=== PATIENT | male | born 1960 | race Caucasian/White ===

== ENCOUNTER → 2024-07-04 10:07 | Outpatient (REF) | payer OTHER, SELFPAY | LOC: HWRAD 10:07 | PROVIDERS: ATTENDING PHYSICIAN Family Medicine | DX: Z87.891 Personal history of nicotine dependence (principal) | CPT/HCPCS: 71271 ==

== ENCOUNTER → 2024-08-10 10:21 | Outpatient (REF) | payer OTHER, SELFPAY | LOC: RAD 10:21 | PROVIDERS: ATTENDING PHYSICIAN Family Medicine | DX: I48.0 Paroxysmal atrial fibrillation (principal) | CPT/HCPCS: 76770 ==

== ENCOUNTER → 2024-08-31 06:20 | Day surgery (SDC) | payer OTHER, SELFPAY | LOC: GI 06:20 | PROVIDERS: ATTENDING PHYSICIAN Internal Medicine Gastroenterology; FAMILY PHYSICIAN Family Medicine | DX: Z12.11 Encounter for screening for malignant neoplasm of colon (principal); D12.3 Benign neoplasm of transverse colon; K63.5 Polyp of colon; K57.30 Diverticulosis of large intestine without perforation or abscess without bleeding; K64.0 First degree hemorrhoids; R06.83 Snoring; Z79.01 Long term (current) use of anticoagulants | CPT/HCPCS: 45385; 45380; 45381; 88305 ==

== ENCOUNTER 2025-05-30 17:16 | Emergency (ER) | payer MEDICARE, SELFPAY ==
[2025-05-30] VITALS (22 sets, daily range): BP systolic 117–145; BP diastolic 81–107; BMI 36.9
[2025-05-30 17:43] LABS: Hematocrit 46.8 % (39.0-52.0); Hemoglobin 16.7 g/dL (13.0-18.0); Mean Corp Hgb Conc. 35.7 g/dL (33.0-37.0); Mean Corpuscular Volume 81.8 fL (80.0-94.0); Nucleated Red Blood Cells % 0 % (-); Platelet Count 249 10^3/uL (130-400); Red Cell Dist. Width 13.3 % (11.5-14.5)
[2025-05-30] MEDS: CARDIZEM 20 MG IV (17:43)
[2025-05-30 17:59] LABS: Blood Urea Nitrogen 19 mg/dl (9-20); Calcium 9.2 mg/dl (8.4-10.2); Carbon Dioxide 22 mmol/L (22-30); Chloride 107 mmol/L (98-107); Estimated Creatinine Clearance 105 ml/min; Glucose 94 mg/dl (70-99); Sodium 136 mmol/L (135-145); eGFR > 60.00
--- NOTE | 2025-05-30 19:13 | ED.GENMED ---
History of Present Illness
General
Chief Complaint: Heart Rate Problem
Time Seen by Provider: 05/30/25 17:23
History of Present Illness
History of Present Illness:
65-year-old male with prior history of A-fib on Eliquis status post ablation 2 and half years ago presenting for palpitations. Patient reports symptoms for the past 4 days. Notes that the palpitations are more prominent when he stands up. He has
not had any issues with his A-fib status post his ablation. He is not on any rate controlling medications. He also has history of hypertension and hyperlipidemia. Denies any associated chest pain or difficulty breathing. Denies fever or recent
illness. Denies abdominal pain or GI symptoms. Patient follows with a broadcast checker through [facility], lives in this area, however has been following with his broadcast checker for some time. Denies additional acute medical complaints
Phy Exam
Physical Exam
Physical Exam:
General: Well-appearing, no clinical signs of dehydration, nontoxic and in no acute distress
HEENT: protecting airway
Neck: appears supple
CV: Tachycardic, irregularly irregular rhythm, no evidence of cyanosis
Resp: No accessory muscle use, no increased work of breathing, lungs clear to auscultation bilaterally
Abd: No distention
Extremities: No deformities, no swelling
Neuro: alert, no focal neurologic deficit
: deferred
Rectal: deferred
Psych: Normal affect
Skin: Intact
Course
Orders/Labs/Results
Orders:
Orders
05/30/25 17:21
Electrocardiogram (*1) Urgent
Reason for Study: Palpitations
EKG- Treatment ONCE
05/30/25 17:32
Diltiazem HCl [Cardizem] 20 mg IV NOW STA
05/30/25 17:35
Basic Metabolic Panel Urgent
Complete Blood Count/With Diff Urgent
05/30/25 19:09
Propofol [Diprivan] 20 ml .ROUTE .STK-MED
05/30/25 19:22
Propofol [Diprivan] 100 mg IV NOW STA
05/30/25 19:30
ECG [Electrocardiogram (*1)] Urgent
Reason for Study: Palpitations
Cardiology Consult: Unknown
EKG- Treatment ONCE
Abnormal Lab Results
05/30/25
17:35
MPV 10.6 H fL
(7.4-10.4)
Absolute Lymphs (auto) 3.9 H 10^3/uL
(1.2-3.4)
Absolute Monos (auto) 0.8 H 10^3/uL
(0.1-0.6)
05/30/25 17:35
05/30/25 17:35
Vital Signs
Initial and Last Documented VS:
Initial Vital Signs
Pulse Resp
171 19
05/30/25 17:21 05/30/25 17:21
Last Documented Vital Signs
Temp Pulse Resp BP Pulse Ox
98.1 F 91 20 127/95 98
05/30/25 19:51 05/30/25 20:30 05/30/25 20:48 05/30/25 20:30 05/30/25 20:48
Procedures
Cardioversion
Indication:: Afib
Performed by:: Meera Plascencia DO
Energy Used: 200 joules
Number of attempts: 1
Complications: none
ASA Risk Score: Class II
Any reaction or bad outcome to prior sedation/anesthesia?: No history of a reaction
Sedation level to be attained: moderate
Chart and allergies reviewed: Yes
Patient reassessed prior to sedation: Yes
Time out completed at (validating right patient & procedure): 19:22
History of difficult intubation: No
Airway free of obstruction: Yes
Patient has a gag reflex: Yes
Patient is able to open mouth: Yes
Patient has no dentures: Yes
Patient has no loose teeth: Yes
Medication administered by Provider during Moderate Sedation: IV Propofol (mg)
Total dose administered: 100
Time drug administered: 19:26
Start Time: 19:26
Stop Time: 19:41
MDM/Problems Addressed
MDM/Problems Addressed:
65-year-old male with history of A-fib status post ablation presenting for palpitations. Vital signs on arrival significant for tachycardia.
On exam, patient resting comfortably, no acute distress or discomfort. Patient by monitor and by EKG is with RVR. Suspected etiology of patient's symptoms. No additional hemodynamic instability. Patient notes that he has been cardioverted in the
past with success. He reports compliance with his Eliquis, denies any missed doses. Will try diltiazem for rate control and reassess.
19:10 - Patient still tachycardic, discussed options of continued rate controlling medications versus cardioversion. Patient would prefer to be cardioverted. Will proceed.
19:30 -successful cardioversion. Once patient is more awake and alert, plan for discharge home with outpatient cardiology follow-up
*Pulse Oximetry
SaO2: 98
Oxygen Mode of Delivery: Room air
Patient hypoxic: no
*EKG
Interpreted by ED Provider?: Yes
EKG Intrepretation Date: 05/30/25
EKG Intrepretation Time: 19:15
Interpretation: abnormal
Comparison EKG: no comparison EKG present
Heart Rate: 156
Rate: tachycardiac
Rhythm: a-fib
[place]: left axis deviation
QRS Pattern: normal QRS
Ischemia: non-specific ST changes
*Critical Care Note
Total Time (30-74mins, 75-104mins- exclusive of procedures): Not Applicable
ED Attending Note
-
Portions of this chart may have been created with voice recognition software.� Occasional wrong word or��sound alike� substitutions may have occurred due to the inherent limitations of voice recognition software.
Discharge Plan
Departure
Patient Disposition: Home (Routine Discharge)
Date of Disposition: 05/30/25
Time of Disposition: 20:19
Patient with high blood pressure during this ER visit?: Yes
Condition: Good
Discharge Problem:
Atrial fibrillation with rapid ventricular response, Encounter for cardioversion procedure
Instructions: Atrial Fibrillation (DC), MODERATE SEDATION ADULT, BLOOD PRESSURE
Referrals:
Donaldo Strange DO [Family Provider, [facility]]
Activity Restrictions/Additional Instructions:
You were seen in the emergency department for palpitations
You were found to have atrial fibrillation and you were subsequently cardioverted. Please follow-up closely with your broadcast checker.
Please follow-up closely with your primary care physician.
Return to the emergency department for any worsening of your symptoms, or any development of chest pain, difficulty breathing, abdominal pain with persistent vomiting and inability to tolerate food or liquid by mouth (concern for dehydration),
weakness, headache or confusion, fever greater than 100.4, or any additional symptoms that are concerning to you.
Thank you for choosing [facility].
Interventions
Interventions:
*Risk Screen - Suicide Last Done: 05/30/25 17:22
*General Assessment Last Done: 05/30/25 17:22
*Neglect/Abuse Screening Last Done: 05/30/25 17:22
*ED- Fall Risk Assessment Last Done: 05/30/25 17:22
*ED COVID-19 Vaccine History Last Done: 05/30/25 19:14
*Nursing Disposition Last Done: 05/30/25 20:48
ED- Cardiac Assessment Last Done: 05/30/25 19:14
ED- Pulmonary Assessment Last Done: 05/30/25 19:14
Discharge Date and Time
Discharge Date/Time: 05/30/25 20:54
Print Language: ISRAELI
[2025-05-30] MEDS: DIPRIVAN 100 MG IV (19:26)
== END 2025-05-30 20:54 | disposition home or self-care (01) ==
LOC: EMR 17:16
PROVIDERS: EMERGENCY PHYSICIAN Student in an Organized Health Care Education/Training Program; FAMILY PHYSICIAN Family Medicine
DX: I48.91 Unspecified atrial fibrillation (principal); E78.5 Hyperlipidemia, unspecified; I10 Essential (primary) hypertension; Z79.01 Long term (current) use of anticoagulants
CPT/HCPCS: 92960; 99285; 96374; 99152; 80048; 85025; 93005

== ENCOUNTER → 2025-07-12 10:52 | Outpatient (REF) | payer MEDICARE, SELFPAY | LOC: HWRAD 10:52 | PROVIDERS: ATTENDING PHYSICIAN Internal Medicine; FAMILY PHYSICIAN Family Medicine | DX: Z87.891 Personal history of nicotine dependence (principal) | CPT/HCPCS: 71271 ==

== ENCOUNTER → 2025-09-03 08:15 | Day surgery (SDC) | payer MEDICARE, SELFPAY | END | disposition home or self-care (01) | LOC: GI 08:15 | PROVIDERS: ATTENDING PHYSICIAN Internal Medicine Gastroenterology | DX: Z12.11 Encounter for screening for malignant neoplasm of colon (principal); K63.5 Polyp of colon; K64.9 Unspecified hemorrhoids; Z86.0100 Personal history of colon polyps, unspecified | CPT/HCPCS: 45380; 88305 ==